=== PATIENT | female | born 1950 | race Caucasian/White ===

== ENCOUNTER 2020-05-12 13:57 | Inpatient (IN) | payer MEDICARE, SELFPAY ==
[~2020-05-12] VITALS: Ht 162.6 cm; Wt 72.0 kg
[2020-05-12 14:27] LABS: BASOPHILS ABSOLUTE AUTO 0.04 K/mm3 (0.00-0.23); BASOPHILS PERCENT AUTO 1 % (0-2); EOSINOPHILS ABSOLUTE AUTO 0.26 K/mm3 (0.00-0.68); EOSINOPHILS PERCENT AUTO 3 % (0-6); Hematocrit 43.7 % (33.0-51.0); Hemoglobin 14.2 g/dL (11.5-16.0); IMMATURE GRAN ABSOLUTE AUTO 0.03 K/mm3 (0.00-0.10); IMMATURE GRAN PERCENT AUTO 0 % (0-1); LYMPHOCYTES ABSOLUTE AUTO 2.78 K/mm3 (0.84-5.20); LYMPHOCYTES PERCENT AUTO 35 % (21-46); MONOCYTES ABSOLUTE AUTO 0.63 K/mm3 (0.16-1.47); MONOCYTES PERCENT AUTO 8 % (4-13); Mean Corpuscular HGB 28.4 pg (26.0-34.0); Mean Corpuscular HGB Conc 32.5 g/dL (31.5-36.5); Mean Corpuscular Volume 87 fL (80-100); Mean Platelet Volume 12.1 fL (9.1-12.4); NEUTROPHILS ABSOLUTE AUTO 4.13 K/mm3 (1.96-9.15); NEUTROPHILS PERCENT AUTO 53 % (41-73); Platelet Count 196 K/mm3 (150-400); RDW Standard Deviation 41.3 fL (35.1-46.3); White Blood Cell Count 7.87 K/mm3 (4.00-11.30)
[2020-05-12 14:40] LABS: International Normalized Ratio 0.9; Prothrombin Time Results 9.7 Sec (9.7-11.5)
[2020-05-12 14:51] LABS: Albumin, Blood 3.7 g/dL (3.4-5.0); Albumin/Globulin Ratio 1.1 (0.8-1.8); Bilirubin, Total 0.4 mg/dL (0.1-1.0); Bun/Creatinine Ratio 19.2 (12.0-20.0); Calcium, Blood 9.6 mg/dL (8.5-10.1); Creatinine, Blood 1.04 mg/dL (0.40-1.00); Globulin, Blood 3.5 g/dL (2.2-4.0); Potassium, Blood 4.1 mmol/L (3.5-5.5); Total Protein, Blood 7.2 g/dL (6.4-8.2)
--- NOTE | 2020-05-12 20:24 | NUR ---
JENNIFER BEING ADMITTED TO THE FLOOR FOR CVA. IS AT BEDSIDE. JENNIFER ARRIVED VIA GURNEY, TRANSFERRED SELF TO BED. KNOWS WHO SHE IS, HER BUT HAS APHASIA. THIS STARTED AT 1700 YESTERDAY. THOUGHT IT WOULD GO AWAY, SHE STARTED TO HAVE TROUBLE WALKING SO HE BROUGHT HER IN. SHE IS ABLE TO COMPERHEND SOME SIMPLE WORDS BUT TENDS TO LOOK AT HER FOR UNDERSTANDING. YOU HAVE TO GESTURE OR USE HANDS TO POINT TO WHAT YOU NEED HER TO DO. ABLE TO FOLLOW DIRECTIONS PART OF THE TIME. SHE TRIES TO TALK BUT WORDS DO NOT FORM CORRECTLY ALL THE TIME. SHE WAS ABLE TO SAY "CAN'T TALK", UNABLE TO SMILE, HAS FROWN INSTEAD. TONGUE IS CENTERED. PUPILS LEFT 4MM RIGHT 3MM REACTIVE. CASINO ATTENDANT ARE EQUAL AND STRONG. BLE ARE ALSO EQUAL AND STRONG. DOES NOT HAVE HEADACHE AT THIS TIME, OR VISION CHANGES. BP IS 230/80 WILL CALL MD TO SEE WHERE THEY WANT THE PRESSURE AT. PLANS TO STAY WITH PATIENT. CALL LIGHT IS GIVEN. BED ALARM IS ON.
--- NOTE | 2020-05-12 21:21 | NUR ---
CALLED AREN CHAVEZ REGARDING HYPERTENSION. STATES BP UP TO 220 IS OK ANYTHING ABOVE THAT TO GIVE HYDRALAZINE. ORDER PLACED.
--- NOTE | 2020-05-12 23:58 | NUR ---
PT REPORTS SEVERE HEADACHE BEHIND THE LEFT EYE TO TEMPAL AREA. CHECKED NEUROS NO CHANGES. WAS ABLE TO FORM A SENTENCE BUT STILL HAVING TROUBLE COMPERHENDING. IS BACK FOR THE NIGHT.
[2020-05-13 05:26] LABS: BASOPHILS ABSOLUTE AUTO 0.03 K/mm3 (0.00-0.23); BASOPHILS PERCENT AUTO 0 % (0-2); EOSINOPHILS ABSOLUTE AUTO 0.11 K/mm3 (0.00-0.68); EOSINOPHILS PERCENT AUTO 1 % (0-6); Hematocrit 44.3 % (33.0-51.0); Hemoglobin 14.5 g/dL (11.5-16.0); IMMATURE GRAN ABSOLUTE AUTO 0.02 K/mm3 (0.00-0.10); IMMATURE GRAN PERCENT AUTO 0 % (0-1); LYMPHOCYTES ABSOLUTE AUTO 2.21 K/mm3 (0.84-5.20); LYMPHOCYTES PERCENT AUTO 24 % (21-46); MONOCYTES ABSOLUTE AUTO 0.59 K/mm3 (0.16-1.47); MONOCYTES PERCENT AUTO 6 % (4-13); Mean Corpuscular HGB Conc 32.7 g/dL (31.5-36.5); Mean Corpuscular Volume 86 fL (80-100); Mean Platelet Volume 12.1 fL (9.1-12.4); NEUTROPHILS ABSOLUTE AUTO 6.43 K/mm3 (1.96-9.15); NEUTROPHILS PERCENT AUTO 69 % (41-73); Platelet Count 193 K/mm3 (150-400); RDW Coefficient Variation 13.1 % (11.7-14.2); RDW Standard Deviation 40.9 fL (35.1-46.3); Red Blood Cell Count 5.17 M/mm3 (3.80-5.20); White Blood Cell Count 9.39 K/mm3 (4.00-11.30)
[2020-05-13 06:08] LABS: Anion Gap 9 mmol/L (6-16); Blood Urea Nitrogen 19 mg/dL (8-24); Bun/Creatinine Ratio 17.4 (12.0-20.0); CHOL/HDL RATIO 6.7; CO2, Blood 22 mmol/L (21-32); Calcium, Blood 9.2 mg/dL (8.5-10.1); Chloride, Blood 108 mmol/L (98-108); Cholesterol 288 mg/dL (50-200); Creatinine, Blood 1.09 mg/dL (0.40-1.00); Glomerular Filtration Rate 52 (60-); Glucose, Blood 194 mg/dL (70-99); HDL Cholesterol 43 mg/dL (>39); LDL/HDL RATIO 4.5; Low Density Lipoprotein Chol 195 mg/dL (0-110); Potassium, Blood 3.8 mmol/L (3.5-5.5); Sodium, Blood 139 mmol/L (136-145); Triglycerides 248 mg/dL (30-160); Very Low Density Lipoprot Chol 49 mg/dL (6-32)
--- NOTE | 2020-05-13 07:38 | NUR ---
SHIFT SUMMARY: ADMIT FOR CVA, AT BEDSIDE. SYMPTOMS OF APHAGIA CONTINUED THROUGOUT THE NIGHT, DIFFICULTY COMPERHENDING WHAT IS SAID. TENDS TO LOOK AT HER FOR HELP. ABLE TO GET UP AND WALK WITH NO PROBLEMS. SMILE IS MORE OF A FROWN. NPO EXCEPT ICE CHIPS AND MEDS. BE 230/80, GAVE 10MG OF HYDRALAZINE. BP DOWN TO 214 THEN TO 175. DEVELOPED HEADACHE. GAVE 25MCQ OF FENTANYL. NEURO REMAINED THE SAME WITH NO CHANGES. TRIGLYCERIDES, CHOLESTROL AND LDL ALL WERE ELEVATED THIS AM. DISCUSSED WITH THE NEED TO CHANGE DIET. PATIENT TO HAVE MRI AND ECHO THIS AM. 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 TELE SINUS. REPORT GIVEN TO DAY SHIFT. CALL LIGHT IN REACH.
--- NOTE | 2020-05-13 11:31 | NUR ---
Echocardiogram performed.
--- NOTE | 2020-05-13 18:23 | NUR ---
SHIFT SUMMARY. ALERT, ALTHOUGH LETHARGIC, SLEEPING MOST OF THE SHIFT, AWAKENS EASILY WITH VERBAL STIMULI. PT CONTINUES WITH GLOBAL APHASIA, ONLY ABLE TO SPEAK A FEW WORDS AT A TIME AND POOR COMPREHENSION OF CONVERSATION. NO PHYSICAL DEFICITS OBSERVED. WILLIAM. NEURO ASSESSMENT UNCHANGED FROM AM ASSESSMENT THROUGH THE REST OF SHIFT. PT DID NOT TOLERATE MRI HEAD, DR. KENNEY AWARE. PT CONTUES WITH HYPERTENSION, MEDICATED PER EMAR TO ALLOW PERMISSIVE HYPERTENSION AT A REASONABLE LEVEL. PT WITH H/A DURING SHIFT, INTENSITY DECREASED BY END OF SHIFT, PRN APAP AND COOL WASH CLOTH TO FOREHEAD DURING SHIFT. AT BEDSIDE ENTIRE SHIFT UNTIL JUST NOW, HE WILL RETURN AND STAY WITH PT FOR THE REMAINDER OF NIGHT.
--- NOTE | 2020-05-13 19:49 | NUR ---
SPOKE TO PHARMACY CONTACTED GENE IN PHARMACY ABOUT GIVING THE PT HER 2100 DOSE OF AMLODIPINE SINCE SHE RECIEVED HER FIRST DOSE AT 1710. GENE SUGGESTED TO GIVE THE 2100 DOSE BUT TO WAIT UNTIL CLOSER TO 2200 TO GIVE IT. PT'S BP IS 178/82 AND CHARGE NURSE IS AWARE OF THE SITUATION.
--- NOTE | 2020-05-14 05:46 | NUR ---
TAX COMPLIANCE OFFICER SUMMARY PT SLEPT FOR MOST OF THE SHIFT W AT HER SIDE. PT AWOKE ONCE W C/O HEADACHE AND WAS GIVEN TYLENOL. PT APPEARS CONFUSED ABOUT HER CONDITION AND DOESNT UNDERSTAND WHY SHE CANNOT TALK. PT AND WERE EDUCATED ON EFFECTS OF A TIA/CVA ALTHOUGH IT IS NOT CLEAR IF THE PT UNDERSTANDS. PT HAS HAD EMOTIONAL LABILITY AND WILL BEGIN TO CRY WHILE LYING IN BED. EXPRESSED FEAR AND CONCERN ABOUT HIS WIFES CONDITION GOING FORWARD WILL LOOK LIKE. PT'S BLOOD PRESSURE IS SYSTOLIC IN THE 160'S, NO HYDRALAZINE WAS GIVEN THIS SHIFT. PT AND ARE BOTH SLEEPING COMFORTABLY W CALL LIGHT WITHIN REACH.
--- NOTE | 2020-05-14 13:11 | NUR ---
MRI COMPLETED, TANK SETTER HELPER REPORTED ALL SEQUENCES WERE COMPLETED ALTHOUGH PT DID HAVE DIFFICULTY HOLDING HEAD STILL AT TIMES.
--- NOTE | 2020-05-14 18:00 | NUR ---
SHIFT SUMMARY. LETHARGIC, AWAKENS EASILY WITH VERBAL STIMULI. ORIENTATED TO SELF AND FAMILY ONLY. CONTINUES WITH GLOBAL APHASIA. COMPREHENSION AND SPEECH SLIGHTLY IMPROVED TODAY COMPARED TO YESTERDAY. PT DENIES PAIN. NO S/SX OF DISCOMFORT OR DISTRESS. DR. KENNEY IN THIS AFTERNOON TO DISCUSS MRI RESULTS WITH PT AND . NO OTHER CHANGES OR CONCERNS.
--- NOTE | 2020-05-15 01:59 | NUR ---
05/14/201999 PT AMBULATED WITH THIS NURSE AND SPOUSE 200 FEET IN HALLWAY AND BACK WITH GAIT SLOW AND STEADY; PT UNABLE TO VERBALIZE ANY UNDERSTANDABLE WORDS AND HAS TROUBLE MAKING GESTURES; PT NOTED TO HAVE STRONG BILATERAL HAND MAINTENANCE HELPER UTILITY ENGINEER AND FOOT PUSH AND PULLS; NO ISSUES WITH EATING OR SWALLOWING FLUIDS; SPOUSE AT SIDE AND SUPPORTIVE.
--- NOTE | 2020-05-15 04:05 | NUR ---
SHIFT SUMMARY: 70 Y/O OBESE FEMALE RESTED COMFORTABLY ALL SHIFT; PT DEMONSTRATED ABILITY THIS SHIFT TO WALK DOWN HALLWAY WITH GAIT SLOW AND STEADY; PTS BILATERAL HAND LINOLEUM FLOOR LAYER/FOOT PUSH AND PULLS STRONG AND EQUAL; PT HAS FINE MOTOR MOVEMENT; PT HAS APHASIA AND UNABLE TO VERBALIZE HER NEEDS AND RELIES ON SPOUSE FOR ASSISTANCE; DENIES PAIN OR NAUSEA VIA NON VERBAL CUES; PT WILLL BENEFIT FROM HOME HEALTH CARE REFERRAL FOR SPEECH THERAPY IN HOME WITH NURSING; BD LOW POSITION WITH CALL LIGHT AT SIDE PTS SPOUSE LUIS AT SIDE ALL NIGHT.
[2020-05-15] MEDS ORDERED: AMLO5 PO (12:33)
[2020-05-15] MEDS ORDERED: Aspir 8181 MG PO (12:34)
[2020-05-15] MEDS ORDERED: ATOR80 PO (12:35)
[2020-05-15] MEDS ORDERED: Prinivil10 MG PO (12:36)
[2020-05-15] MEDS ORDERED: CLOP75 PO (12:37)
[2020-05-15] MEDS ORDERED: METF500 PO (12:38)
--- NOTE | 2020-05-15 15:57 | NUR ---
DISCHARGE NOTE PT IS A&O TO SELF, FAMILY. PT IS ABLE TO ANSWER SOME QUESTIONS BUT WILL PAUSE DURING SOME AND IS UNABLE TO FIND THE CORRECT WORDS. PT ACCEPTING OF CARE AND LOOKS TO FOR SUPPORT AND TO ASK AND ANSWER QUESTIONS FOR HER. WENT OVER DC PACKET WITH PT AND SPOUCE. DID DIABETIC TEACHING AND HOW TO CHECK BLOOD SUGARS AT HOME. RECEPTIVE TO TEACHING AND ASKED QUESTIONS. GAVE PT INFORMATION ON FINDING A PCP AND HOW TO SIGN UP FOR OHP. REMOVED IV'S BEFORE DISCHARGE. PT TAKEN TO EXIT VIA WHEELCHAIR BY GURINDER BRAXTON.
== END 2020-05-15 15:57 | disposition home or self-care (01) | DRG 66 ==
LOC: ER 13:57 → MEDS 13:58 → ENPENDDIS 05-15 10:55 → MEDS 05-15 15:57
PROVIDERS: Nurse Practitioner Acute Care; Physician Assistant; ADMIT Family Medicine
DX: I63.212 Cerebral infarction due to unspecified occlusion or stenosis of left vertebral artery (principal); R47.89 Other speech disturbances; E66.9 Obesity, unspecified; E78.5 Hyperlipidemia, unspecified; I12.9 Hypertensive chronic kidney disease with stage 1 through stage 4 chronic kidney disease, or unspecified chronic kidney disease; E11.22 Type 2 diabetes mellitus with diabetic chronic kidney disease; N18.30 Chronic kidney disease, stage 3 unspecified; R47.01 Aphasia; R47.02 Dysphasia; Z68.36 Body mass index [BMI] 36.0-36.9, adult; Z87.891 Personal history of nicotine dependence; Z20.822 Contact with and (suspected) exposure to COVID-19
CPT/HCPCS: 36415; 70450; 70496; 70498; 70551; 80048; 80053; 80061; 82947; 83036; 85025; 85610; 92523; 92610; 93005; 93010; 93306; 96374; 96375; 96376; 97162; 99285-25; A9270; G0378; J0360; J2060; J3010; Q9967

== ENCOUNTER 2025-03-16 04:47 | Inpatient (IN) | payer MEDICARE | END 2025-03-20 13:30 | disposition home health service (06) | DRG 280 | LOC: ER 04:47 → PCU 07:24 → ICUE 03-18 11:52 → PCU 03-19 17:38 | PROVIDERS: ADMIT Family Medicine | PROC: B24BZZZ Ultrasonography of Heart with Aorta (ICD-10-PCS; principal; 2025-03-16) | DX: I21.4 Non-ST elevation (NSTEMI) myocardial infarction (principal); I50.21 Acute systolic (congestive) heart failure; I13.0 Hypertensive heart and chronic kidney disease with heart failure and stage 1 through stage 4 chronic kidney disease, or unspecified chronic kidney disease; J90 Pleural effusion, not elsewhere classified; N17.9 Acute kidney failure, unspecified; I16.1 Hypertensive emergency; E87.20 Acidosis, unspecified; E78.5 Hyperlipidemia, unspecified; Z86.73 Personal history of transient ischemic attack (TIA), and cerebral infarction without residual deficits; Z79.82 Long term (current) use of aspirin; N18.30 Chronic kidney disease, stage 3 unspecified; E11.22 Type 2 diabetes mellitus with diabetic chronic kidney disease; Z79.84 Long term (current) use of oral hypoglycemic drugs; I16.0 Hypertensive urgency; Z87.891 Personal history of nicotine dependence; I70.1 Atherosclerosis of renal artery; R04.0 Epistaxis ==

== ENCOUNTER 2025-03-22 19:07 | Inpatient (IN) | payer MEDICARE ==
[~2025-03-22] VITALS: Ht 167.6 cm; Wt 59.4 kg
[~2025-03-22 19:07] MED LIST: AMLO5 PO; AMLODIPINE BESY10 MG PO; ASPI81CH PO; ATOR40TA PO; ATOR80 PO; Aspir 8181 MG PO; CLOP75 PO; Ketamine HCl 100 MG / ML 5ML Vial IV ONE; LABE100 PO; METF500 PO; NITR.4SL SL; ONDA4ODT MM; Prinivil10 MG PO; SuccINYLCHOLINE Chloride 100 MG/5 ML 5MLSYR IV ONE
[2025-03-22] MEDS ORDERED: DiphenhydrAMINE HCl 50 MG/ML 1ML Vial IV ONE (19:50)
[2025-03-22 20:01] LABS: Source, Urine Straight Cath
[2025-03-22 20:24] LABS: Alanine Aminotransfer (ALT/SGP 44 U/L (12-78); Albumin, Blood 3.5 g/dL (3.4-5.0); Albumin/Globulin Ratio 1.1 (0.8-1.8); Anion Gap 11 mmol/L (3-11); Aspartate Aminotrans (AST/SGOT 44 U/L (12-37); Bilirubin, Total 0.7 mg/dL (0.1-1.0); Blood Urea Nitrogen 48 mg/dL (8-24); CO2, Blood 21 mmol/L (21-32); Calcium, Blood 8.7 mg/dL (8.5-10.1); Chloride, Blood 113 mmol/L (98-108); Creatinine, Blood 2.25 mg/dL (0.40-1.00); Ethanol (Alcohol), Blood, Med <3 mg/dL; Globulin, Blood 3.1 g/dL (2.2-4.0); Glucose, Blood 128 mg/dL (70-99); Potassium, Blood 4.7 mmol/L (3.5-5.5); Sodium, Blood 140 mmol/L (136-145); Total Protein, Blood 6.6 g/dL (6.4-8.2)
[2025-03-22 20:25] LABS: Bilirubin, Urine Neg (Neg); Glucose Qualitative, Urine Neg (Neg); Ketones, Urine Neg (Neg); Leukocyte Esterase, Urine Neg (Neg); Protein, Urine 2+ (Neg); Specific Gravity, Urine 1.020 (1.003-1.022); Urobilinogen, Urine NORM (Normal)
[2025-03-22 20:37] LABS: Color, Urine Yellow (P-Yellow)
[2025-03-22 20:38] LABS: Red Blood Cells, Urine 0-2 /hpf (0-2); White Blood Cells, Urine 0-2 /hpf (0-5)
[2025-03-22 20:42] VITALS: BP 91/68
[2025-03-22 20:44] LABS: BAND PERCENT MAN 1 % (0-8); BASOPHILS PERCENT MAN 2 % (0-2); EOSINOPHILS PERCENT MAN 2 % (0-6); LYMPHOCYTES PERCENT MAN 19 % (21-46); MONOCYTES PERCENT MAN 7 % (4-13); PLASMA CELLS PERCENT MAN 1 % (0-0); SEG NEUTROPHILS PERCENT MAN 68 % (41-73)
[2025-03-22] MEDS ORDERED: LORazepam 2 MG/ML 1ML Injection IV ONE (20:45)
[2025-03-22 20:47] LABS: BASOPHILS ABSOLUTE AUTO 0.06 K/mm3 (0.00-0.23); BASOPHILS ABSOLUTE MAN 0.17 K/mm3 (0.00-0.23); BASOPHILS PERCENT AUTO 1 % (0-2); EOSINOPHILS ABSOLUTE AUTO 0.28 K/mm3 (0.00-0.68); EOSINOPHILS ABSOLUTE MAN 0.17 K/mm3 (0.00-0.68); EOSINOPHILS PERCENT AUTO 3 % (0-6); Hematocrit 36.1 % (33.0-51.0); Hemoglobin 11.5 g/dL (11.5-16.0); IMMATURE GRAN ABSOLUTE AUTO 0.04 K/mm3 (0.00-0.10); IMMATURE GRAN PERCENT AUTO 1 % (0-1); LYMPHOCYTES ABSOLUTE AUTO 1.72 K/mm3 (0.84-5.20); LYMPHOCYTES ABSOLUTE MAN 1.64 K/mm3 (0.84-5.20); LYMPHOCYTES PERCENT AUTO 20 % (21-46); MONOCYTES ABSOLUTE AUTO 1.04 K/mm3 (0.16-1.47); MONOCYTES ABSOLUTE MAN 0.60 K/mm3 (0.16-1.47); MONOCYTES PERCENT AUTO 12 % (4-13); Mean Corpuscular HGB Conc 31.9 g/dL (31.5-36.5); Mean Corpuscular Volume 85 fL (80-100); NEUTROPHILS ABSOLUTE AUTO 5.52 K/mm3 (1.96-9.15); NEUTROPHILS ABSOLUTE MAN 5.97 K/mm3 (1.96-9.15); NEUTROPHILS PERCENT AUTO 64 % (41-73); NRBC ABSOLUTE 0.03 K/mm3 (0.00-0.02); NRBC Auto 0.3 /100 WBC (0.0-0.2); PLASMA CELL ABSOLUTE MAN 0.08 K/mm3 (0.00-0.00); Platelet Count 169 K/mm3 (150-400); RDW Coefficient Variation 16.1 % (11.7-14.2); RDW Standard Deviation 49.2 fL (35.1-46.3)
[2025-03-22] MEDS ORDERED: NS 1,000 ML IV SCH (21:00)
[2025-03-22] MEDS ORDERED: SuccINYLCHOLINE Chloride 20 MG/ML 10ML Injection IV ONE (21:05)
[2025-03-22] MEDS ORDERED: Ketamine HCl 100 MG / ML 5ML Vial IV ONE (21:05)
[2025-03-22 21:34] LABS: pH Blood Venous 7.36 (7.34-7.37)
[2025-03-22 21:48] LABS: U Amphetamine Screen Not Detected; U Barbiturate Screen Not Detected; U Benzodiazapine Screen Not Detected; U Buprenorphine Screen Not Detected; U Cannabinoids Screen Not Detected; U Cocaine Screen Not Detected; U Methadone Screen Not Detected; U Methamphetamine Screen Not Detected; U Opiates Screen Not Detected; U Oxycodone Screen Not Detected; U Phencyclidine Screen Not Detected
[2025-03-22 22:29] LABS: Influenza A, PCR NEGATIVE (NEGATIVE); Influenza B, PCR NEGATIVE (NEGATIVE); Resp Syncytial Virus, PCR NEGATIVE (NEGATIVE); SARS-Cov-2 (COVID-19) PCR, MMC NEGATIVE (NEGATIVE)
[2025-03-22 22:42] VITALS: BP 91/68
[2025-03-22] MEDS ORDERED: FentaNYL Citrate 50 MCG/ML 2 ML Injection IV PRN (22:45)
[2025-03-22] MEDS ORDERED: FLU VACC TS2025(65UP)/MF59C/PF 45 MCG/0.5 ML SYRINGE IM SCH (22:45)
[2025-03-22] MEDS ORDERED: Cetylpyridinium Chloride 1 EA MISC MT SCH (22:45)
[2025-03-22 23:15] VITALS: BP 91/68
[2025-03-22 23:30] VITALS: BP 148/55
[2025-03-22 23:45] VITALS: BP 126/57
[2025-03-23] VITALS (57 sets, daily range): BP systolic 87–152; BP diastolic 49–124
[2025-03-23] MEDS ORDERED: Hydrogen Peroxide 1.5 % Solution MT SCH
[2025-03-23] MEDS ORDERED: NS 100 ML IV ONE (01:52)
[2025-03-23] MEDS ORDERED: Vancomycin (Pharmacy Consult) IV PRN (04:00)
[2025-03-23 04:40] LABS: BASOPHILS ABSOLUTE AUTO 0.03 K/mm3 (0.00-0.23); BASOPHILS PERCENT AUTO 0 % (0-2); EOSINOPHILS ABSOLUTE AUTO 0.04 K/mm3 (0.00-0.68); EOSINOPHILS PERCENT AUTO 1 % (0-6); Hematocrit 31.4 % (33.0-51.0); Hemoglobin 10.1 g/dL (11.5-16.0); IMMATURE GRAN ABSOLUTE AUTO 0.03 K/mm3 (0.00-0.10); IMMATURE GRAN PERCENT AUTO 0 % (0-1); LYMPHOCYTES ABSOLUTE AUTO 1.22 K/mm3 (0.84-5.20); LYMPHOCYTES PERCENT AUTO 14 % (21-46); MONOCYTES ABSOLUTE AUTO 0.85 K/mm3 (0.16-1.47); MONOCYTES PERCENT AUTO 10 % (4-13); Mean Corpuscular HGB Conc 32.2 g/dL (31.5-36.5); Mean Corpuscular Volume 84 fL (80-100); NEUTROPHILS ABSOLUTE AUTO 6.35 K/mm3 (1.96-9.15); NEUTROPHILS PERCENT AUTO 74 % (41-73); NRBC ABSOLUTE 0.00 K/mm3 (0.00-0.02); NRBC Auto 0.0 /100 WBC (0.0-0.2); Platelet Count 166 K/mm3 (150-400); RDW Coefficient Variation 16.0 % (11.7-14.2); RDW Standard Deviation 49.5 fL (35.1-46.3)
[2025-03-23 04:45] LABS: pH Blood Venous 7.36 (7.34-7.37)
[2025-03-23 05:13] LABS: Alanine Aminotransfer (ALT/SGP 41.0 U/L (12-78); Albumin, Blood 3.3 g/dL (3.4-5.0); Albumin/Globulin Ratio 1.0 (0.8-1.8); Anion Gap 11.0 mmol/L (3-11); Aspartate Aminotrans (AST/SGOT 48.0 U/L (12-37); Bilirubin, Total 0.7 mg/dL (0.1-1.0); Blood Urea Nitrogen 50.0 mg/dL (8-24); CO2, Blood 23.0 mmol/L (21-32); Calcium, Blood 8.7 mg/dL (8.5-10.1); Chloride, Blood 113.0 mmol/L (98-108); Creatinine, Blood 2.45 mg/dL (0.40-1.00); Globulin, Blood 3.2 g/dL (2.2-4.0); Glucose, Blood 132.0 mg/dL (70-99); Magnesium, Blood 2.5 mg/dL (1.6-2.4); Potassium, Blood 4.7 mmol/L (3.5-5.5); Sodium, Blood 142.0 mmol/L (136-145); Total Protein, Blood 6.5 g/dL (6.4-8.2)
--- NOTE | 2025-03-23 06:29 | NUR ---
SHIFT SUMMARY PT REMAINS INTUBATED AND SEDATED, RASS -2 WHICH CHANGES TO +1 WITH STIMULATION. VENT SETTINGS A/C VC 14/350/5/55% FI02, SATS REMAIN >90%. PROPOFOL INFUSING AT 30 MCG AND LEVOPHED ON SB. RHYTHM IS SINUS WITH RATE OF 60S-80S ON MONITOR WITH OCCASIONAL PVC'S, BP HAS BEEN LABILE, DIPPING TO MAP OF 55-65 AND QUICKLY RECOVERING TO >65 WITH REPOSITIONING OF ARM. PT RFA PIV HAD EXTRAVASATION OF LEVOPHED, ADMINISTERED REGITINE PER JUL, IV WAS DC'D AND NEW POWERGLIDE PLACED IN RUE WHICH REMAINS PATENT. PIV IN LEFT WRIST WAS NO LONGER PATENT, DC'D AND PLACE NEW US GUIDED PIV IN LAC WAS PLACED. LATER IN SHIFT, THE LAC ALSO EXTRAVASATED WHILE INFUSING VANCOMYCIN. PROVIDER CONTACTED AGAIN, AND ADMINISTERED HYALURONIDASE PER JUL, PIV DC'D AND NEW PIV PLACED WITH US IN RAC WHICH REMAINS PATENT. LONGORIA IN PLACE AND DRAINING TO GRAVITY, CALL LIGHT IS WITHIN REACH.
[2025-03-23] MEDS ORDERED: Cefepime HCl 1,000 MG in NS 100 ML IV SCH (09:00)
--- NOTE | 2025-03-23 11:00 | NUR ---
"Spiritual Care Visit | Nurse recommendation Pt is intubated and not responsive, but is known to this exercise physiology professor from a previous visit. Spouse is at bedside and welcomes my visit. Facilitated an update and listened with empathy and a calming presence. Spouse verbalized a request for jaquelin exercise physiology professor to reach out to his senior wind energy consultant and request his presence. Prayed with Spouse. Spouse verbalized gratitude for the spiritual care visits. Contacted his senior wind energy consultant via text"
[2025-03-23] MEDS ORDERED: NS 1,000 ML IV SCH (15:45)
[2025-03-23] MEDS ORDERED: NS 1,000 ML IV ONE (15:49)
[2025-03-23] MEDS ORDERED: Ipratropium/Albuterol SulF 2.5-0.5MG/3 ML Amp INH PRN (17:10)
[2025-03-23] MEDS ORDERED: Furosemide 10 MG / ML 2ML Vial IV ONE (17:30)
--- NOTE | 2025-03-23 18:42 | NUR ---
Patient remains on ICU status. Was able to liberate patient from mechanical ventilation. Around 17:00 patient became agitated and restless, Dr Garcia came to bedside, Precedex restarted on patient, lasix ordered. Urine output the hour after lasix IVP was low, navarro placement checked and bladder scan completed for reading of 9ml (see bladder flowsheet). was at bedside for majority of the day. Daughter updated via phone by .
[2025-03-24] VITALS (41 sets, daily range): BP systolic 102–177; BP diastolic 41–123
[2025-03-24 05:04] LABS: Anion Gap 12 mmol/L (3-11); Blood Urea Nitrogen 49 mg/dL (8-24); CO2, Blood 22 mmol/L (21-32); Calcium, Blood 8.9 mg/dL (8.5-10.1); Chloride, Blood 116 mmol/L (98-108); Creatinine, Blood 2.59 mg/dL (0.40-1.00); Glucose, Blood 132 mg/dL (70-99); Potassium, Blood 4.2 mmol/L (3.5-5.5); Sodium, Blood 146 mmol/L (136-145); Vancomycin, Random 18.9 ug/mL
--- NOTE | 2025-03-24 06:18 | NUR ---
SHIFT SUMMARY NO ACUTE CHANGES DURING NOC. ROUSES EASILY TO VERBAL STIMULI. OCCASIONALLY FOLLOWS SOME SIMPLE COMMANDS. MOVES ALL EXTREMITIES AND REPOSITIONS SELF INTERMITTENTLY. SPEECH IS MINIMAL AND MUMBLED. VSS. HR HIGH 50s TO 60s. AFEBRILE. O2 NOW AT 3L NC. RESPIRATIONS EVEN AND UNLABORED. PRECEDEX TITRATED FROM 0.5 DOWN TO 0.3MCG/KG/HR. LONGORIA PATENT AND DRAINING TO GRAVITY. WILL REPORT TO ONCOMING RN WHEN AVAILABLE.
--- NOTE | 2025-03-24 06:36 | NUR ---
AGITATION PT WITH INCREASED AGITATION AT THIS TIME. ATTEMPTING TO CLIMB OUT OF BED AND THRASHING AROUND IN BED. NOT FOLLOWING COMMANDS WHILE AGITATED. SOB NOTED WITH EXERTION. PRECEDEX INCREASED BACK TO 0.4MCG/KG/HR AND MEDICATED WITH FENTANYL 25MCG IV FOR COMFORT. WITHIN SEVERAL MINUTES, PT CALMED DOWN AND WAS ABLE TO FOLLOW SIMPLE COMMANDS AND WAS ABLE TO SAY THAT SHE WAS IN THE HOSPITAL. BED ALARM IS ON.
--- NOTE | 2025-03-24 09:57 | NUR ---
PALLIATIVE CARE CONSULT: CONSULT RECEIVED FOR MEDICALLY FRAGILE, ADVANCED CARE PLANNING, CULTURAL PERSPECTIVE, AND READMIT. MEDICAL RECORD REVIEW COMPLETED. NO POLST OR AD FOUND ON FILE OR THROUGH [facility]. WILL DISCUSS IN CM ROUNDS TODAY.
[2025-03-24] MEDS ORDERED: Haloperidol Lactate Inj. 5 MG/ML Injection IM PRN (11:30)
--- NOTE | 2025-03-24 18:36 | NUR ---
Patient remains in ICU care having an alteration in her mental status. Weaned off the Precedex infusion this morning due to patient somnolence. After infusion was off patient became agitated around 11:00 trying to get out of bed and pulling at lines. Precedex infusion was restarted and patient rested once more. Spoke with Dr Marrero concerning this and Dr Marrero put in PRN Zyprexa and PRN Haldol orders with the instructions that Zyprexa is to be used as the first line pharmaceutical intervention. Precedex infusion stopped again before noon and patient did have two more episodes of uncontrollable agitation during the shift, however, the Zyprexa was given in both instances and was effective in subsiding the agitation without making the patient as somnolent as the Precedex. See MAR and critical care flowsheet for PRN interventions and titration of Precedex infusion. This morning I also spoke with Dr Garcia concerning low urine output. Dr Garcia felt patient is dehydrated and ordered one liter of 1/2 normal saline. See MAR
[2025-03-24] MEDS ORDERED: Heparin Sodium,Porcine 5,000 UNIT/0.5 ML SDV SC SCH (21:00)
--- NOTE | 2025-03-24 21:00 | NUR ---
ASSUMPTION OF CARE/ASSESSMENT: ASSUMED CARE OF PT AT 1900; BEDSIDE SHIFT REPORT RECIEVED FROM MAVERICK BRAXTON. PT ORIENTED TO AND [place] BUT WHEN ASKED THE DATE PT STATES 1988 AND IS NOT ABLE TO ANSWER OTHER QUESTIONS. PT FOLLOWING COMMANDS INTERMITTENLY. PT ON NC @ 4LPM, CLEAR WITH DIM BASES, SPO2 90<; INTERMITTENT WHEEZES IN UPPER AIRWAY OBSERVED WHEN PT IS AGGITATED/ANXIOUS, PRN BREATHING TX PER EMAR. PT SR ON MONITOR WIHT PVC'S, HR 90'S, SBP 170'S, PT STATES "NO" WHEN ASLED ABOUT CHEST PAIN/PRESSURE. PT NPO, FAILED BEDSIDE SWALLOW EVAL, AND ORAL CARE COMPLETED. LONGORIA PATENT AND DRAINING TO GRAVITY, OLIGURIA NOTED AND DR. MERCER AWARE. PG TO GEORGES THAT IS PATENT AND SALINE LOCKED, PIV TO RAC THAT IS PATENT AND SALINE LOCKED. BED LOWERED, CALL LIGHT IN REACH.
[2025-03-24] MEDS ORDERED: Labetalol HCL 5 MG/ML 4ML Injection (Single Dose) IV PRN (21:25)
[2025-03-25] VITALS (30 sets, daily range): BP systolic 99–209; BP diastolic 65–136
[2025-03-25 05:50] LABS: BASOPHILS ABSOLUTE AUTO 0.06 K/mm3 (0.00-0.23); BASOPHILS PERCENT AUTO 1 % (0-2); EOSINOPHILS ABSOLUTE AUTO 0.14 K/mm3 (0.00-0.68); EOSINOPHILS PERCENT AUTO 1 % (0-6); Hematocrit 34.0 % (33.0-51.0); Hemoglobin 10.9 g/dL (11.5-16.0); IMMATURE GRAN ABSOLUTE AUTO 0.04 K/mm3 (0.00-0.10); IMMATURE GRAN PERCENT AUTO 0 % (0-1); LYMPHOCYTES ABSOLUTE AUTO 1.79 K/mm3 (0.84-5.20); LYMPHOCYTES PERCENT AUTO 18 % (21-46); MONOCYTES ABSOLUTE AUTO 1.05 K/mm3 (0.16-1.47); MONOCYTES PERCENT AUTO 11 % (4-13); Mean Corpuscular HGB Conc 32.1 g/dL (31.5-36.5); Mean Corpuscular Volume 85 fL (80-100); NEUTROPHILS ABSOLUTE AUTO 6.94 K/mm3 (1.96-9.15); NEUTROPHILS PERCENT AUTO 69 % (41-73); NRBC ABSOLUTE 0.00 K/mm3 (0.00-0.02); NRBC Auto 0.0 /100 WBC (0.0-0.2); Platelet Count 179 K/mm3 (150-400); RDW Coefficient Variation 15.8 % (11.7-14.2); RDW Standard Deviation 49.1 fL (35.1-46.3)
[2025-03-25 06:08] LABS: Magnesium, Blood 2.6 mg/dL (1.6-2.4)
[2025-03-25 06:09] LABS: Alanine Aminotransfer (ALT/SGP 50.0 U/L (12-78); Albumin, Blood 3.3 g/dL (3.4-5.0); Albumin/Globulin Ratio 0.9 (0.8-1.8); Anion Gap 13.0 mmol/L (3-11); Aspartate Aminotrans (AST/SGOT 65.0 U/L (12-37); Bilirubin, Total 0.7 mg/dL (0.1-1.0); Blood Urea Nitrogen 54.0 mg/dL (8-24); CO2, Blood 19.0 mmol/L (21-32); Calcium, Blood 9.2 mg/dL (8.5-10.1); Chloride, Blood 117.0 mmol/L (98-108); Creatinine, Blood 2.36 mg/dL (0.40-1.00); Globulin, Blood 3.6 g/dL (2.2-4.0); Glucose, Blood 119.0 mg/dL (70-99); Phosphorus, Blood 4.1 mg/dL (2.5-4.9); Potassium, Blood 4.5 mmol/L (3.5-5.5); Sodium, Blood 144.0 mmol/L (136-145); Total Protein, Blood 6.9 g/dL (6.4-8.2)
--- NOTE | 2025-03-25 06:10 | NUR ---
SHIFT SUMMARY: NO ACUTE CHANGES OVERNIGHT. PT INCREASING HYPERTENSION AT START OF SHIFT; PROVIDER UPDATED AND ORDERS FOR PRN LABETOLOL FOR SBP < 170. PT GIVEN ONE DOES WITH GOOD EFFECT. PT CONTINUES ON NC @ 4LPM. NEURO STATUS REMAINS UNCHANGED. ZYPREXA GIVEN TWICE THIS SHIFT WITH GOOD EFFECT. MORNING LABS PENDING. BED LOWERED, CALL LIGHT IN REACH.
[2025-03-25] MEDS ORDERED: Sodium Bicarb 8.4% Inj 50 MEQ IV SCH (06:25)
[2025-03-25] MEDS ORDERED: Sodium Bicarb 8.4% 1 MEQ/ML 50 ML Vial IV ONE (06:45)
--- NOTE | 2025-03-25 11:15 | NUR ---
PT REPORTED ACUTE ONSET SOB AND CHEST PAIN. EKG WAS OBTAINED. PAIN/EPISODE LASTED APPOX 15 MINUTES. PT UNABLE TO DESCRIBE PAIN ONLY ANSWERED YES/NO QUESTIONS. PT TACHYPNEIC RESPIRATORY RATE INCREASED TO 30S. HR INCREASED FROM 80S TO 130 SUSTAINED FOR APPROX 3MIN AND MAINTAINED HR 90-110S FOR APPOX 20 MINS. . PT BECAME DIAPHORETIC, AUDIBLE WHEEZING WITH FAINT CRACKLES IN RLL. INCREASED WOB AND PT BECAME ANXOUS ATTEMPTING TO EXIT THE BED AND MOANING. PT SBP 150-160S. PT HAD ANOTHER SIMILAR EVENT LASTING 3 MIN. [address]S RESOLVED. DR VASQUEZ NOTIFIED. VERBAL ORDER PROVIDED FOR CXR AND LASIX 80MG.
[2025-03-25] MEDS ORDERED: Dose Adjust by Pharmacy XX STA (17:54)
[2025-03-25] MEDS ORDERED: Heparin Sodium,Porcine/0.5 NS 500 ML IV SCH (17:55)
[2025-03-25 18:15] LABS: Anti-Xa UFH, PHA Monitoring <0.10 IU/mL; Prothrombin Time Results 11.6 Sec (9.7-11.5)
[2025-03-25] MEDS ORDERED: Heparin Sodium 5000 Units/ML 1ML MDV IV ONE (18:55)
[2025-03-25] MEDS ORDERED: Saline Nasal Spray 45 ML PRN (22:55)
[2025-03-26] VITALS (26 sets, daily range): BP systolic 112–173; BP diastolic 52–140
[2025-03-26 02:19] LABS: BASOPHILS ABSOLUTE AUTO 0.09 K/mm3 (0.00-0.23); BASOPHILS PERCENT AUTO 1 % (0-2); EOSINOPHILS ABSOLUTE AUTO 0.18 K/mm3 (0.00-0.68); EOSINOPHILS PERCENT AUTO 2 % (0-6); Hematocrit 33.9 % (33.0-51.0); Hemoglobin 10.9 g/dL (11.5-16.0); IMMATURE GRAN ABSOLUTE AUTO 0.05 K/mm3 (0.00-0.10); IMMATURE GRAN PERCENT AUTO 1 % (0-1); LYMPHOCYTES ABSOLUTE AUTO 1.69 K/mm3 (0.84-5.20); LYMPHOCYTES PERCENT AUTO 16 % (21-46); MONOCYTES ABSOLUTE AUTO 1.12 K/mm3 (0.16-1.47); MONOCYTES PERCENT AUTO 10 % (4-13); Mean Corpuscular HGB Conc 32.2 g/dL (31.5-36.5); Mean Corpuscular Volume 84 fL (80-100); NEUTROPHILS ABSOLUTE AUTO 7.64 K/mm3 (1.96-9.15); NEUTROPHILS PERCENT AUTO 71 % (41-73); NRBC ABSOLUTE 0.00 K/mm3 (0.00-0.02); NRBC Auto 0.0 /100 WBC (0.0-0.2); Platelet Count 187 K/mm3 (150-400); RDW Coefficient Variation 15.8 % (11.7-14.2); RDW Standard Deviation 48.3 fL (35.1-46.3)
[2025-03-26 02:42] LABS: Anion Gap 15.0 mmol/L (3-11); Blood Urea Nitrogen 65.0 mg/dL (8-24); CO2, Blood 24.0 mmol/L (21-32); Calcium, Blood 9.4 mg/dL (8.5-10.1); Chloride, Blood 113.0 mmol/L (98-108); Creatinine, Blood 2.34 mg/dL (0.40-1.00); Glucose, Blood 154.0 mg/dL (70-99); Potassium, Blood 3.6 mmol/L (3.5-5.5); Sodium, Blood 148.0 mmol/L (136-145)
[2025-03-26] MEDS ORDERED: Dose Adjust by Pharmacy XX STA ×2 (02:46→10:30)
--- NOTE | 2025-03-26 06:37 | NUR ---
PATIENT ALERT, RESTLESS, AND ORIENT X1 (TO SELF ONLY). REPORTS NO PAIN. NO S/S OF DISTRESS/DISCOMFORT. TURN Q2 SCHEDULE. BP WITHIN DESIRED RANGE. PATIENT TROPONIN INCREASED TO 6264 THIS SHIFT. MD MADE AWARE AND NO NEW ORDERS RECIEVED. PER MD NO FOLLOW-UP NEEDED FOLLOWING THIS RESULT AT THIS TIME. CONTINUES ON HEPARIN GTT AT 12 U/KG/HR. LAB ANTI-XA SCHEDULED FOR MONITORING. OXYGEN TITRATED DOWN TO ROOM AIR WITH O2 SAT 92-94%. PATIENT REMOVING O2 PROBE FREQUENTLY. REEDUCATED ON NEED FOR O2 PROBE FOR OXYGEN MONTIORING. GENERALIZED WEAKNESS NOTED. TOLERATING PUREED DIET. PATIENT ATE FULL PUDDING CUP WITH NURSE ASSIST. MOUTH CARE PROVIDED Q2. PATIENT SCRATCHING NOSE FREQUENTLY AND ATTMPTING TO BLOW NOSE. SALINE NOSE SPRAY ORDERED AND ADMINISTED WITH DESIRED EFFECT. PATIENT NAILS ALSO FILED/SMOOTHED BY NURSE RELATED TO PATIENT SCRATCHING INSIDE OF NOSE AGRESSIVLY CAUSING A SMALL AMOUNT OF BLEEDING. BLEEDING STOPPED QUICKLY WITHOUT NEED FOR PRESSURE OR INTERVENTION. PATIENT NOSE CLEANED AND BACTROBAN PLACED ON AND AROUND NOSE. PATIENT FREQUENTLY REORIENTED THROUGHOUT SHIFT. SAFETY AND COMFORT MAINTAINED.
--- NOTE | 2025-03-26 10:11 | NUR ---
PATIENT ALERT TO SELF. ABLE TO TELL THIS RN NAME AND . SAYS "I DON'T KNOW" TO MOST QUESTIONS AND SHRUGS SHOULDERS. OPENS EYES AND FOLLOWS SIMPLE COMMANDS. MOVING ALL EXTREMITIES AND QUITE WIGGLY IN BED. DENIES PAIN THIS MORNING. ON ROOM AIR SATING 90-96%. LUNG SOUNDS CLEAR AND DIM. OCCASIONAL NONPRODUCTIVE COUGH. EVEN AND UNLABORED RESPIRATIONS. TELE SHOWING SINUS RHYTHM WITH HR 60-80'S. SBP 160'S THIS MORNING. DENIES CHEST PAIN/PRESSURE. HEPARIN GTT INFUSING PER EMAR. SCD'S IN PLACE. BOWEL TONES PRESENT. DENIES ABDOMINAL PAIN/NAUSEA. TOLERATING PUREE DIET WITH FEEDING ASSISTANCE. PILLS WHOLE WITH YOGURT THIS AM. LONGORIA CATH IN PLACE DRAINING YELLOW URINE TO GRAVITY. CATH CARE COMPLETED WITH MORNING CARES. SKIN PALE WITH SCATTERED BRUISING. PATIENT PICKING AT NOSE AND CAUSING NOSE TO BLEED. SALINE NASAL SPRAY AND OINTMENT TO NOSE TO HELP WITH DRYNESS. DR. HUANG AND DR. MEZA TO BEDSIDE THIS MORNING, THIS RN PRESENT. NO NEW ORDERS FOR THIS RN TO PLACE. CALL LIGHT IN REACH. PATIENT RESTING IN BED AND DENIES NEEDS.
--- NOTE | 2025-03-26 13:08 | NUR ---
PATIENT CHANCE TO 43. NONSYMPTOMATIC AND SLEEPING. BLOOD PRESSURE STABLE. DR. HUANG CALLED AND EKG COMPLETED. DR. HUANG TO UNIT TO VISUALIZE EKG. NO NEW ORDERS AT THIS TIME. LUIS AT BEDSIDE AND UPDATED ON PLAN OF CARE.
--- NOTE | 2025-03-26 17:29 | NUR ---
MRI RESULTS BACK. DR. HUANG UPDATED ON RESULTED MRI, PATIENT OUTPUT OF 500ML IN LONGORIA FOR THIS SHIFT AND VITALS. ORDERS FOR 500ML NORMAL SALINE IV TOTAL AT A RATE OF 75ML/HR.
[2025-03-26] MEDS ORDERED: NS 500 ML IV ONE (17:30)
--- NOTE | 2025-03-26 17:54 | NUR ---
ORDERS FOR HEPARIN, CONTINUE PUREE DIET AT THIS TIME AND NO NEED FOR NIH PER DR. HUANG. PATIENT REMAINS ALERT TO SELF. FOLLOWING SIMPLE COMMANDS. ON ROOM AIR - 2L NASAL CANNULA. BRADYCARDIA/NORMAL SINUS RHYTHM WITH HR 40-70'S. TOLERATING PUREE DIET AT THIS TIME WITH NO NOTED SWALLOWING ISSUES. AT BEDSIDE. BED BATH COMPLETED THIS SHIFT. PATIENT CONTINUES TO HAVE LONGORIA CATH DRAINING TO GRAVITY. ONE BOWEL MOVEMENT. CALL LIGHT IN REACH. PATIENT RESTING IN BED AT THIS TIME.
[2025-03-27] VITALS (12 sets, daily range): BP systolic 112–178; BP diastolic 55–122
[2025-03-27] MEDS ORDERED: Dose Adjust by Pharmacy XX STA (01:43)
[2025-03-27 04:55] LABS: Hematocrit 33.3 % (33.0-51.0); Hemoglobin 10.4 g/dL (11.5-16.0); Mean Corpuscular HGB Conc 31.2 g/dL (31.5-36.5); Mean Corpuscular Volume 86 fL (80-100); NRBC ABSOLUTE 0.00 K/mm3 (0.00-0.02); NRBC Auto 0.0 /100 WBC (0.0-0.2); Platelet Count 182 K/mm3 (150-400); RDW Coefficient Variation 15.8 % (11.7-14.2); RDW Standard Deviation 49.2 fL (35.1-46.3)
[2025-03-27 05:09] LABS: Anion Gap 9.0 mmol/L (3-11); Blood Urea Nitrogen 57.0 mg/dL (8-24); CO2, Blood 26.0 mmol/L (21-32); Calcium, Blood 8.9 mg/dL (8.5-10.1); Chloride, Blood 117.0 mmol/L (98-108); Creatinine, Blood 2.01 mg/dL (0.40-1.00); Glucose, Blood 139.0 mg/dL (70-99); Potassium, Blood 3.5 mmol/L (3.5-5.5); Sodium, Blood 148.0 mmol/L (136-145)
--- NOTE | 2025-03-27 06:07 | NUR ---
ALERT AND ORIENT TO PERSON AND PLACE ONLY AT THIS TIME. SIGNIFICANTLY RESTLESS WITH MULTIPLE ATTEMPTS TO GET OUT OF BED, PULL OFF HOSPITAL EQUIPMENT INCLUDING EKG LEADS, PULSE OX, AND LONGORIA CATHETER. REDIRECTABLE FOR SHORT PERIODS BUT BEGINS REMOVING EQUIPMENT AGAIN SHORTLY AFTER. FOLLOWS COMMANDS WHEN ASKED. MOVES EXTREMITIES X4 WITHOUT COMPLICATION. WEAKNESS NOTED TO EXTREMITIES X4. PUPILS EQUIL AND REACTIVE AT THIS TIME. NSR/SB MID 50S-70S. ROOM AIR THOUGHOUT NIGHT SATTING 98%. SWALLOWS MEDICATIONS AND SNACK WITHOUT COMPLICATIONS. TOLERATING PUREED DIET AT THIS TIME. CONTINUES ON HEPARIN GTT AT 12 U/KG/HR WITH NEXT ANTI XA 0700. REPORTS NO PAIN THIS SHIFT. LONGORIA CONTINUES TO GRAVITY WITH MINIMAL URINE OUTPUT NOTED. NO S/S OF DISTRESS AT THIS TIME. TURNED FREQUENTY IN BED ON Q2 HOUR TURN SCHEDULE. SAFETY MAINTAINED. PATIENT UPDATED ON CARE CARE WAS PERFORMED THROUGHOUT SHIFT.
--- NOTE | 2025-03-27 08:00 | NUR ---
ASSUMPTION OF CARE ASSUMED CARE OF PATIENT AT APPROX 0700. PATIENT ALERT AND ORIENTED TO SELF AND PLACE. PATIENT HAS SOME CONFUSION AND IS RESTLESS, BUT IS EAILY REDIRECTED. HR NORMAL SINUS IN THE 60S. BP STABLE WITH MAPS >65. PATIENT ON 2LO2 VIA NC WITH SPO2 >94%. LONGORIA PATIENT AND DRAINING BLOOD TINGED URINE TO GRAVITY. PG TO GEORGES PATENT AND INFUSING HEPARIN AT 12 UNITS/KG/HR. CALL LIGHT IN REACH. BED IN LOWEST POSITION. BED ALARM ON.
--- NOTE | 2025-03-27 12:15 | NUR ---
PT UPDATE PT HR DROPPING TO THE 30-40'S, DR. KENNEY CALLED AND INFORMED, ORDERS RECEIVED TO DC THE LABETALOL, INSTRUCTED TO CONTINUE TO MONITOR.
--- NOTE | 2025-03-27 17:08 | NUR ---
SHIFT SUMMARY PATIENT IS NOW ALERT AND ORIENTED TO SELF, FAMILY, EVENT, PLACE, AND DATE, BUT HAS SOME INTERMITTENT CONFUSION. PATIENT HR HAS BEEN SINUS/SINUS CHANCE ANYWHERE FROM THE 40S-70S. PATIENT HAD A FEW EPISODES OF HR AT 39. DR KENNEY IS AWARE. NO NEW ORDERS. BP STABLE WITH MAPS >65. PATIENT ON 2L O2 VIA NC WITH SPO2 >94%. LONGORIA PATENT AND DRAINING YELLOW URINE TO GRAVITY. PATIENT HAD SMEAR BM THIS SHIFT. PG TO GEORGES PATENT AND SALINE LOCKED. IV TO RIGHT AC PATENT AND SALINE LOCKED. PATIENT TOLERATING PO INTAKE AND ABLE TO FEED HERSELF. CALL LIGHT IN REACH. BED ALARM ON. DAUGHTER UPDATED ON PLAN OF CARE TODAY BY DR. KENNEY AND THIS RN.
[2025-03-28] VITALS (8 sets, daily range): BP systolic 101–153; BP diastolic 56–121
--- NOTE | 2025-03-28 06:27 | NUR ---
END OF MEMORIAL COUNSELOR SUMMARY: PATIENT ALERT AND ORIENT THIS AM X3. DIORIENTED TO TIME BUT DOES KNOW THE CURRENT PRESIDENT BUT STATES IT IS 1940. REPORTS ABDOMINAL PAIN X4. TREATED WITH PRN PAIN MEDICATION WITH DESIRED AFFECT. BOWEL SOUNDS ACTIVE X4 QUADRANTS AND PATIENT IS PASSING GAS. NSR/SB WITH HIGH 40S LOWEST HEART RATE. MOVES EXTREMITIES X4 TO COMMAND/SPONTANIOUSLY WITH NOTED WEAKNESS TO ALL EXTREMITIES. NO BM THIS SHIFT. LONGORIA TO GRAVITY WITH MINIMUM UO NOTED; DONNELL IN COLOR. ON Q2 TURN SCHEDULE. PATIENT REFUSING SCDS; TAKING THEM OFF AND KICKING WHEN THEY ARE ON. RESPIRATIONS EVEN AND NON-LABORED. PATIENT CONTINUES ON 2L NC. NO S/S OF DISTRESS OR DISCOMFORT AT THIS TIME.
[2025-03-28 08:15] LABS: BASOPHILS ABSOLUTE AUTO 0.10 K/mm3 (0.00-0.23); BASOPHILS PERCENT AUTO 1 % (0-2); EOSINOPHILS ABSOLUTE AUTO 0.74 K/mm3 (0.00-0.68); EOSINOPHILS PERCENT AUTO 8 % (0-6); Hematocrit 35.6 % (33.0-51.0); Hemoglobin 10.5 g/dL (11.5-16.0); IMMATURE GRAN ABSOLUTE AUTO 0.04 K/mm3 (0.00-0.10); IMMATURE GRAN PERCENT AUTO 0 % (0-1); LYMPHOCYTES ABSOLUTE AUTO 1.82 K/mm3 (0.84-5.20); LYMPHOCYTES PERCENT AUTO 20 % (21-46); MONOCYTES ABSOLUTE AUTO 1.05 K/mm3 (0.16-1.47); MONOCYTES PERCENT AUTO 11 % (4-13); Mean Corpuscular HGB Conc 29.5 g/dL (31.5-36.5); Mean Corpuscular Volume 89 fL (80-100); NEUTROPHILS ABSOLUTE AUTO 5.47 K/mm3 (1.96-9.15); NEUTROPHILS PERCENT AUTO 59 % (41-73); NRBC ABSOLUTE 0.00 K/mm3 (0.00-0.02); NRBC Auto 0.0 /100 WBC (0.0-0.2); Platelet Count 159 K/mm3 (150-400); RDW Coefficient Variation 15.6 % (11.7-14.2); RDW Standard Deviation 51.4 fL (35.1-46.3)
--- NOTE | 2025-03-28 13:00 | NUR ---
JENNIFER HAS BEEN SLEEPING FOR THE MAJORITY OF THE MORNING. HER LONGORIA CATHETER WAS REPLACED AFTER ORDER FROM FOR URINALYSIS. PT EXHIBITED BEING UNCOMFORTABLE WITH THE EXCHANGE. SHE HAS BEEN ABLE TO TAKE IN FLUIDS ORALLY. SHE IS ANSWERING QUESTIONS. HER VITAL SIGNS HAVE BEEN STABLE. HEART RATE FLUCTUATES WITH BREATHING, NOTIFIED DR. KENNEY, HE ORDERED CT SCAN. PT TAKEN TO CT. RETURNS WITHOUT INCIDENT. AT BEDSIDE NOW, ASKING IF HE CAN BE TOLD WHEN SHE WILL BE BETTER AND WHEN SHE WILL LEAVE. TOLD ABOUT PT'S STROKE, STATES YES HE KNOWS THAT. UNSURE WHAT INFORMATION HE IS ASKING FOR.
[2025-03-28 13:04] LABS: Source, Urine Straight Cath
[2025-03-28 13:09] LABS: Bilirubin, Urine Neg (Neg); Color, Urine Amber (P-Yellow); Glucose Qualitative, Urine Neg (Neg); Ketones, Urine Neg (Neg); Leukocyte Esterase, Urine 1+ (Neg); Protein, Urine 3+ (Neg); Specific Gravity, Urine 1.020 (1.003-1.022); Urobilinogen, Urine NORM (Normal)
[2025-03-28 13:28] LABS: Red Blood Cells, Urine 50-100 /hpf (0-2); White Blood Cells, Urine 0-2 /hpf (0-5)
--- NOTE | 2025-03-28 16:36 | NUR ---
MET WITH PT AND AT BEDSIDE. PT REMAINS PLEASANTLY CONFUSED. WAS UNABLE TO MAKE ANY DECISIONS AT THIS TIME, STATES HE HAS HAD "SOME STROKES" IN THE PAST. ETHICS CONSULT PLACED, WILL F/U TOMORROW.
--- NOTE | 2025-03-28 18:19 | NUR ---
SHIFT SUMMARY: A&Ox3, DISORIENTED TO TIME. HR OCCASIONALLY DROPPED FROM 60'S TO 40'S BUT RECOVERED QUICKLY AFTERWARDS DURING FIRST HALF OF SHIFT. HR MAINTAINED IN THE 70-80'S THROUGHOUT REST OF SHIFT. VSS OTHER THAN THAT. NO PAIN REPORTED. PT MAINTAINED ON 2L O2 VIA NC. NSR/SB ASIDE FROM A BRIEF RUN OF AFIB RVR THAT SHE CAME OUT OF WITHOUT INTERVENTION. PT REPORTED NO SX. NEW LONGORIA PLACED, PATENT AND DRAINING WITH MINIMAL URINE OUTPUT. PT HAD CT TODAY. AT BEDSIDE. HE CURRENTLY HAS DECISION MAKING POWER, HOWEVER ETHICS HAS BEEN CONSULTED DUE TO SOME INDECISION REGARDING CODE STATUS.
[2025-03-29] VITALS (12 sets, daily range): BP systolic 97–152; BP diastolic 39–94
--- NOTE | 2025-03-29 06:11 | NUR ---
SHIFT SUMMARY: NO ACUTE CHANGES T/O THE NIGHT. PT ASLEEP MOST OF THE SHIFT. PT REMAINS A&OX3, DISORIENTED TO TIME. PT IS PLEASANTLY CONFUSED AT TIMES. PT AFEBRILE T/O THE NIGHT. DENIED PAIN. PT VSS. HR BETWEEN 70-90S, SINUS. MAPS>65. PT REMAINS ON 2L 02 VIA NC, SATS>90%. PT FREQUENTLY NEEDED NC REPOSITIONED BACK TO HER NOSE SHE CONTINUED TO REMOVE IT. SATS NOTED TO DECREASE INTO HIGH 80S WHEN THIS OCCURRED. NO S/SXS OF DISTRESS NOTED DURING THESE EPISODES. LUNGS CLEAR. ABD SOFT, MILDLY DISTENDED. BT ACTIVE X4. PT HAD BM THIS SHIFT, LOOSE. LONGORIA REMAINS IN PLACE, DRAINING CONCENTRATED URINE TO GRAVITY. PIV IN LFA AND DELL POWERGLIDE REMAIN SALINE LOCKED AT THIS TIME.
--- NOTE | 2025-03-29 08:26 | NUR ---
Ethics consultation support requested. Review of medical history, family constellation, and clinical trajectory facilitated. If the is unable to operate as the principals formal proxy, then by statutory default we would rely on the daughter for substitute medical decision making. I would recommend using the practice of informed non-dissent with the to communicate the change in proxy. In other words, the needs to be gently, respectfully, and clearly informed that we are obliged under these circumstances to shift the burden of decision making to the daughter. If he does not actively dispute or override this recommendation, then we proceed without incident. It he contests or outright refuses this approach, then we may need to consider filing a petition with the court. This should only be legally escelated if we exhaust all other viable and less invasive options. Please reach out if additional support / involvement would be helpful or necessary.
--- NOTE | 2025-03-29 11:15 | NUR ---
ASSUMED CARE AT 0700 PT SLEEPING AT SHIFT CHANGE. CONT TO BE DROUSY DURING ASSESSMENT BUT WAS DIRECTABLE AND AGREEABLE; A/O X3; GENERALIZED WEAKNESS NOTED. SPO2 >98% ON 2L NC. AFEBRILE. VITALS STABLE. LONGORIA IN PLACE AND DRAINING TO GRAVITY. SALINE LOCKED. SEE ASSESSMENT FOR FULL ASSESSMENT. DR KENNEY CALLED PT DAUGHTER AND DISCUSSED PLAN OF CARE. PT IS NOW A DNR, STATUS CHANGED TO MEDICAL, PT/OT ORDERED, AND LNOGORIA REMOVED.
--- NOTE | 2025-03-29 17:58 | NUR ---
END OF SHIFT SUMMARY ON ACUTE EVENTS THIS SHIFT. PT SLEPT ON AND OFF T/O THE SHIFT; AT BEDSIDE FOR SEVERAL HOURS TODAY; SHE CONT TO BE A/O X3. SPO2 >98% ON 2L NC. BP AND HR STABLE. POOR APPITITE FOR ALL THREE MEALS. WILL REPORT TO PM RN WHEN AVAILABLE.
[2025-03-30 03:32] VITALS: BP 157/75
--- NOTE | 2025-03-30 05:42 | NUR ---
SHIFT SUMMARY: PT WAS RESTLESS T/O THE NIGHT. AFEBRILE AND DENIED PAIN OF ANY KIND. AT TIMES PT WOULD CALL OUT AND START PULLING MONITORS, SCD'S AND NASAL CANNULA OFF, APPEARING ANXIOUS. PT REQUIRING REPETITIVE ASSURANCE AND RE-ORIENTATION T/O SHIFT. SHE REMAINED RE-DIRECTABLE AND COOPERATIVE DESPITE INTERMITTENT EPISODES WHERE SHE WOULD BECOME GUARDED. PT WAS ONLY ORIENTED TO SELF AND FAMILIAR FACES FOR MOST OF THIS SHIFT, SHE WOULD ASK ABOUT FAMILY MEMBERS BEING IN THE ROOM AND WOULD STATE THAT SHE WAS IN [facility] [place] AT TIMES. OTHER TIMES SHE WOULD STATE SHE WAS IN THE HOSPITAL, THOUGH SHE APPEARED TO BE REPEATING RNS RATHER THAN KNOWING HERSELF. PT WAS GIVEN ONE DOSE OF ZYPREXA, PER EMAR INTRUCTIONS. PT HR OBSERVED TO OCCASSIONALLY DROP FROM 60S TO HIGH 30S A FEW TIMES BUT RECOVERED QUICKLY. THIS OCCURRED FOR A SHORT AMOUNT OF TIME MID-SHIFT. PT DID NOT HAVE ANY S/SXS OF PAIN OR DISTRESS DURING EPISODES. PT REMAINS ON 2L 02 VIA NC-REQUIRED MULTIPLE REMINDERS TO KEEP O2 ON. LUNGS CLEAR. PT HAD 3 BMS THIS SHIFT, TWO OF WHICH REQUIRED A LINEN CHANGE. PT ABLE TO BEAR WEIGHT AND PIVOT TO BEDSIDE COMMODE W/ MODERATE ASSISTANCE FROM RN. PT DENIED N/V AND CONTINUES TO TOLERATE ORAL LIQUIDS. PT ALSO VOIDED USING BSC. URINE REMAINS CONCENTRATED YELLOW. POWERGLIDE IN [place] REMAINS SALINE LOCKED. THIS RN TO REPORT TO ONCOMING RN. CARE CONTINUES.
--- NOTE | 2025-03-30 07:15 | NUR ---
ASSUMPTION OF CARE: PATIENT RESTING IN BED. PATIENT DENIES PAIN. PATIENT DROWSY AND ORIENTED TO SELF, HOSPITAL AND APRIL THE MONTH. PATIENT >94% ON 2.5L VIA NC. PATIENT DENIES SHORTNESS OF BREATH OR DIFFICULTY BREATHING. PATIENT REQUESTED AND DRANK SOME JUICE WITH RN AT BEDSIDE. NO OVERT SIGNS/SYMPTOMS OF ASPIRATION. PATIENT DENIES NEEDS AT THIS TIME.
[2025-03-30 09:12] VITALS: BP 145/61
[2025-03-30 13:02] VITALS: BP 115/72
--- NOTE | 2025-03-30 14:46 | NUR ---
Spiritual Care Visit Pt. is sitting up in a chair and welcomes my visit. Pt. displays evidence of having to concentrate for her words, but is pleasant and verbalized that she remembered this tool coordinator from previous visits. Spouse is at "chair"-side. Facilitated a short update regarding the Pts. plans. Spouse verbalized displeasure at the Pts. DNR status. Listen with interest and empathy. Considered matters of bharat and belief. Pt. displayed evidence of agreement and understanding. Prayed with the Pt. Pt. and spouse verbalized gratitude for the spiritual care visit.
[2025-03-30 15:52] VITALS: BP 149/101
--- NOTE | 2025-03-30 18:12 | NUR ---
SHIFT SUMMARY: NEURO: PATIENT HAS PERIODS OF BETTER ORIENTATION THAN OTHERS. AT ONE POINT, PATIENT WAS ORIENTED TO SELF, , LOCATION AND THOUGHT THAT TODAY WAS "THE BIG DAY". OTHER TIMES, BUT IS CONFUSED ABOUT WHERE SHE IS AND WHAT IS GOING ON. PATIENT GENERALLY ABLE TO FOLLOW DIRECTIONS WITH MULTIPLE REMINDERS. RESPIRATORY: PATIENT REMAINED STABLE ON 2.5L VIA NC. SPO2 >91%. PATIENT DENIES SHORTNESS OF BREATH OR DIFFICULTY BREATHING. PATIENT DOES SEEM TO HAVE PERIODS OF ELEVATED RESPIRATORY RATE WHEN AWAKE THAT RESOLVES QUICKLY. AT TIMES, PATIENT WILL HAVE A LOW SPO2 (LESS THAN 88%) THAT COINCIDES WITH A CHANCE HEART RATE LOW 38. THIS RESOLVES QUICKLY AND WITHOUT INTERVENTION. CARDIAC: PATIENT'S VITALS STABLE WITH MAPS >65. SEE NOT ABOUT RE: BRADYCARDIA THAT COINCIDES WITH LOW SPO2. GI/: PATIENT CONTINENT AND INCONTINENT OF URINE. PATIENT ABLE TO LET THIS RN KNOW THAT SHE NEEDED TO HAVE A BOWEL MOVEMENT. PATIENT HAS A VERY MINIMAL APPETITE. ENCOURAGED PATIENT TO HAVE ENSURE AT AND INBETWEEN MEALS. PSYCHSOCIAL: PATIENT CALM THROUGHOUT THE SHIFT WITH THE EXCEPTION OF ONE SHORT PERIOD OF RESTLESSNESS AND AGITATION. THIS RESOLVED WITH REPOSITIONING AND RE-ORIENTATION. PATIENT'S AT BEDSIDE DURING THE AFTERNOON.
[2025-03-30 20:06] VITALS: BP 115/89
[2025-03-30 20:18] VITALS: BP 115/89
[2025-03-31 04:54] VITALS: BP 164/80
--- NOTE | 2025-03-31 06:15 | NUR ---
END OF CAKE TESTER SUMMARY: PATIENT ALERT AND ORIENTED X3. DISORIENTED TO YEAR ONLY. MOVES EXTREMITIES X4 AND FOLLOWS ALL COMMANDS. REPORTS NO PAIN OR DISCOMFORT THROUGHOUT SHIFT. INTERMITTENTLY TACHYPNEIC BUT MAINTAINS SATURATION >90 ON 2L NC. FED A VANILLA PUDDING TO PATIENT AND PATIENT EXPRESSES SHE ENJOYS THIS SNACK. ATE 100% OF SNACK THIS SHIFT. CONT WITH INCONT. EPISODES. SAFETY AND COMFORT MAINTAINED. REPORTED TO THIS NURSE THAT PATIENT HAS BEEN UNABLE TO SLEEP POTENTIALLY INCREASING CONFUSION. PRN SLEEP MEDICATION PROVIDED PER PRN ORDER TO PROMOTE A REGULAR SLEEP CYCLE. ALL CARE EXPLAINED IT AROSE TO PATIENT.
[2025-03-31 08:55] VITALS: BP 131/48
[2025-03-31 11:55] VITALS: BP 125/63
--- NOTE | 2025-03-31 18:18 | NUR ---
Summary. Pt sleepy this shift but arousable and oriented to person, place, event. Up to chair all afternoon, at bedside. Pt up with PT and to bedside commode, able to ambulate with walker and standby assist. No acute events this shift, see chart for details.
[2025-03-31 19:32] VITALS: BP 111/97
[2025-04-01 00:57] VITALS: BP 115/93
--- NOTE | 2025-04-01 01:38 | NUR ---
PATIENT TRASFERRED TO ROOM 331 VIA BED. ALERT AND ORIENT X3; DISORIENTED TO TIME. MOVING EXTREMITIES X4. REPORTS NO PAIN. 2L NC WHEN PATIENT WOULD WEAR OXYGEN DEVICE. O2 SAT 92-94%. INCONT. OF BOWEL THIS SHIFT LAST BM 03/31/25. INTERMITTENTLY INCONT. OF URINE. CONTINUES ON PUREED DIET AND TOLERATING AT THIS TIME. CONTINUES WITH SCATTERED BRUISING AND REDNESS IN MERY AREA. SAFETY AND COMFORT MAINTAINED. SALINE LOCKED ON TRANSFER.
[2025-04-01 04:01] VITALS: BP 131/75
--- NOTE | 2025-04-01 04:33 | NUR ---
SHIFT SUMMARY: PT A&OX3, NOT DATE/TIME. PT WAS ANXIOUS AND AGITATED SO SHE RECIEVED HER PRN ZYPREXA. CURRENTLY ON RA, SpO2 90%. PUREWICK IN PLACE FOR INCONTINENCE. CALL LIGHT IS WITHIN REACH. BED ALARM IS ON. BED IS LOW AND LOCKED.
[2025-04-01 07:41] VITALS: BP 137/68
[2025-04-01 15:32] VITALS: BP 129/95
--- NOTE | 2025-04-01 16:07 | NUR ---
SHIFT SUMMARY/DISCHARGE PT AOX2/3, COOPERATIVE, ABLE TO MAKE NEEDS KNOWN. PT IS 1 PERSON ASSSIT TO COMMODE FOR VOIDING. PT ON 2L O2 CURRENTLY. HAD BM THIS SHIFT, TOLERATING MEDICATIONS. [facility] THIS RN CALLED TO GIVE REPORT TO "CHERYL". UNSURE IF CHERYL IS A NURSE OR NOT. CHERYL DID MENTION SHE WILL PASS ON REPORT TO NURSE WHO WAS ON HOLD GETTING REPORT FOR ANOTHER PT. ALL BELONGINGS WENT WITH PT. TRANSFERRED VIA WC.
== END 2025-04-01 16:05 | DRG 64 ==
LOC: ER 19:07 → ICUE 22:06 → MEDS 04-01 01:15 → ENPENDDIS 04-01 13:59 → MEDS 04-01 16:05
PROVIDERS: Emergency Medicine; Internal Medicine; Internal Medicine Critical Care Medicine; Nurse Practitioner Acute Care; ADMIT Internal Medicine
PROC: 5A1935Z Respiratory Ventilation, Less than 24 Consecutive Hours (ICD-10-PCS; principal; 2025-03-22)
PROC: 0BH17EZ Insertion of Endotracheal Airway into Trachea, Via Natural or Artificial Opening (ICD-10-PCS; 2025-03-22)
PROC: 3E033XZ Introduction of Vasopressor into Peripheral Vein, Percutaneous Approach (ICD-10-PCS; 2025-03-22)
DX: I63.49 Cerebral infarction due to embolism of other cerebral artery (principal); G92.8 Other toxic encephalopathy; I21.4 Non-ST elevation (NSTEMI) myocardial infarction; I22.2 Subsequent non-ST elevation (NSTEMI) myocardial infarction; J96.01 Acute respiratory failure with hypoxia; I13.0 Hypertensive heart and chronic kidney disease with heart failure and stage 1 through stage 4 chronic kidney disease, or unspecified chronic kidney disease; I50.22 Chronic systolic (congestive) heart failure; N18.4 Chronic kidney disease, stage 4 (severe); Z66 Do not resuscitate; I70.1 Atherosclerosis of renal artery; I73.9 Peripheral vascular disease, unspecified; R00.1 Bradycardia, unspecified; E87.5 Hyperkalemia; E86.0 Dehydration; Z86.73 Personal history of transient ischemic attack (TIA), and cerebral infarction without residual deficits; Z95.828 Presence of other vascular implants and grafts; Z79.82 Long term (current) use of aspirin; Z87.891 Personal history of nicotine dependence
CPT/HCPCS: 36415; 51702; 70450; 70551; 71045; 80048; 80053; 80202; 80320; 81001; 82140; 82803; 83735; 83880; 84100; 84484; 85025; 85027; 85520; 85610; 85730; 87086; 87637; 93005; 93010; 94640; 94664; 94762; 96365-59; 96375-59; 96376-59; 97110; 97161; 97166; 97530; 97535; 99285-25; A9270; C1751; J0330; J0692; J1200; J1644; J1790; J1938; J2060; J2704; J2760; J3010; J3373; J3470; J7030; J7040; J7050

== ENCOUNTER 2025-04-14 11:29 | Observation (INO) | payer MEDICARE, OTHER ==
[~2025-04-14] VITALS: Ht 160 cm; Wt 59.0 kg
[~2025-04-14 11:29] MED LIST changes: -Ketamine HCl 100 MG / ML 5ML Vial IV ONE; -SuccINYLCHOLINE Chloride 100 MG/5 ML 5MLSYR IV ONE
[2025-04-14] MEDS ORDERED: NS 1,000 ML IV SCH ×2 (11:50→12:55)
[2025-04-14 12:22] LABS: pH Blood Venous 7.44 (7.34-7.37)
[2025-04-14 12:25] LABS: Source, Urine Straight Cath
[2025-04-14 12:34] LABS: BASOPHILS ABSOLUTE AUTO 0.04 K/mm3 (0.00-0.23); BASOPHILS PERCENT AUTO 0 % (0-2); EOSINOPHILS ABSOLUTE AUTO 0.03 K/mm3 (0.00-0.68); EOSINOPHILS PERCENT AUTO 0 % (0-6); Hematocrit 31.3 % (33.0-51.0); Hemoglobin 9.7 g/dL (11.5-16.0); IMMATURE GRAN ABSOLUTE AUTO 0.09 K/mm3 (0.00-0.10); IMMATURE GRAN PERCENT AUTO 1 % (0-1); LYMPHOCYTES ABSOLUTE AUTO 2.29 K/mm3 (0.84-5.20); LYMPHOCYTES PERCENT AUTO 17 % (21-46); MONOCYTES ABSOLUTE AUTO 1.43 K/mm3 (0.16-1.47); MONOCYTES PERCENT AUTO 10 % (4-13); Mean Corpuscular HGB Conc 31.0 g/dL (31.5-36.5); Mean Corpuscular Volume 89 fL (80-100); NEUTROPHILS ABSOLUTE AUTO 10.00 K/mm3 (1.96-9.15); NEUTROPHILS PERCENT AUTO 72 % (41-73); NRBC ABSOLUTE 0.02 K/mm3 (0.00-0.02); NRBC Auto 0.1 /100 WBC (0.0-0.2); Platelet Count 215 K/mm3 (150-400); RDW Coefficient Variation 15.9 % (11.7-14.2); RDW Standard Deviation 51.7 fL (35.1-46.3)
[2025-04-14 12:46] LABS: Magnesium, Blood 2.4 mg/dL (1.6-2.4)
[2025-04-14 12:47] LABS: Alanine Aminotransfer (ALT/SGP 63.0 U/L (12-78); Albumin, Blood 2.7 g/dL (3.4-5.0); Albumin/Globulin Ratio 0.6 (0.8-1.8); Anion Gap 13.0 mmol/L (3-11); Aspartate Aminotrans (AST/SGOT 106.0 U/L (12-37); Bilirubin, Total 1.0 mg/dL (0.1-1.0); Blood Urea Nitrogen 52.0 mg/dL (8-24); CO2, Blood 16.0 mmol/L (21-32); Calcium, Blood 9.4 mg/dL (8.5-10.1); Chloride, Blood 111.0 mmol/L (98-108); Creatinine, Blood 2.46 mg/dL (0.40-1.00); Globulin, Blood 4.6 g/dL (2.2-4.0); Glucose, Blood 160.0 mg/dL (70-99); Potassium, Blood 6.3 mmol/L (3.5-5.5); Sodium, Blood 134.0 mmol/L (136-145); Total Protein, Blood 7.3 g/dL (6.4-8.2)
[2025-04-14 13:04] LABS: Calcium, Ionized (POC) 1.19 mmol/L (1.10-1.46); Chloride (POC) 108 mmol/L (98-108); Creatinine (POC) 3.0 mg/dL (0.6-1.0); Glucose (ISTAT POC) 158 mg/dL (70-99); Hematocrit (POC) 30.0 % (36.0-46.0); Hemoglobin (POC) 10.2 g/dL (12.0-16.0); Potassium (POC) 4.4 mmol/L (3.5-5.5); Sodium (POC) 142 mmol/L (135-148); Total CO2 (POC) 18 mmol/L (21-32)
[2025-04-14 13:16] LABS: Influenza A, PCR NEGATIVE (NEGATIVE); Influenza B, PCR NEGATIVE (NEGATIVE); Resp Syncytial Virus, PCR NEGATIVE (NEGATIVE); SARS-Cov-2 (COVID-19) PCR, MMC NEGATIVE (NEGATIVE)
[2025-04-14 13:17] LABS: Bilirubin, Urine Neg (Neg); Color, Urine Yellow (P-Yellow); Glucose Qualitative, Urine Neg (Neg); Ketones, Urine Neg (Neg); Leukocyte Esterase, Urine 2+ (Neg); Protein, Urine 2+ (Neg); Specific Gravity, Urine 1.025 (1.003-1.022); Urobilinogen, Urine NORM (Normal)
[2025-04-14 13:36] LABS: Yeast/Fungi Urine Many /hpf
[2025-04-14 13:40] LABS: Red Blood Cells, Urine 0-2 /hpf (0-2)
[2025-04-14 13:51] LABS: Alanine Aminotransfer (ALT/SGP 63.0 U/L (12-78); Albumin, Blood 3.0 g/dL (3.4-5.0); Albumin/Globulin Ratio 0.7 (0.8-1.8); Anion Gap 12.0 mmol/L (3-11); Aspartate Aminotrans (AST/SGOT 70.0 U/L (12-37); Bilirubin, Total 0.7 mg/dL (0.1-1.0); Blood Urea Nitrogen 53.0 mg/dL (8-24); CO2, Blood 20.0 mmol/L (21-32); Calcium, Blood 9.7 mg/dL (8.5-10.1); Chloride, Blood 109.0 mmol/L (98-108); Creatinine, Blood 2.61 mg/dL (0.40-1.00); Globulin, Blood 4.3 g/dL (2.2-4.0); Glucose, Blood 162.0 mg/dL (70-99); Potassium, Blood 4.3 mmol/L (3.5-5.5); Sodium, Blood 137.0 mmol/L (136-145); Total Protein, Blood 7.3 g/dL (6.4-8.2)
[2025-04-14] MEDS ORDERED: Magnesium Hydroxide Conc 10 ML UDC PO PRN (16:00)
[2025-04-14] MEDS ORDERED: Ondansetron HCl 2 MG / ML 2ML Vial IV PRN (16:00)
[2025-04-14] MEDS ORDERED: Morphine Sulfate 4 MG/1 ML Injection IV PRN (16:00)
[2025-04-14] MEDS ORDERED: FLU VACC TS2025(65UP)/MF59C/PF 45 MCG/0.5 ML SYRINGE IM SCH (16:00)
[2025-04-14 16:15] VITALS: BP 118/71
[2025-04-14] MEDS ORDERED: LORazepam 2 MG/ML 1ML Injection IV PRN ×2 (16:50→19:15)
[2025-04-14] MEDS ORDERED: Morphine Sulfate 20 MG/1ML 1 ML Oral Syringe PO PRN (16:55)
[2025-04-14] MEDS ORDERED: Atropine Sulfate 1% Opth Soln 2ML BTL SL PRN (16:55)
--- NOTE | 2025-04-14 17:26 | NUR ---
PALLIATIVE CARE CONSULT RECEIVED FOR MEDICALLY FRAGILE, AD/POLST, END OF LIFE/COMFORT CARE, READMISSION. REVIEWED MEDICAL RECORD, NO POLST ON FILE OR WITH [facility]. PT HAD RECENT HOSPITALIZATION. SHE WAS SENT OVER FROM [facility] DUE TO AMS. SPOKE TO DR. FELIX ABOUT CONCERNS. CALLED SPOUSE LUIS AT NUMBER IN CHART AND MD NOTE WITH NO ANSWER. CALLED DAUGHTER NELIDA AND SHE ANSWERED. DISCUSSED PLAN TO ADMIT PT AND CODE STATUS. NELIDA STATED PT IS DNR AND HAS "DIRECTIVE" ON FILE WITH [facility]. CALLED [facility] AND THEY WERE ABLE TO CONFIRM PT HAS POLST ON FILE. THERE IS NO ADVANCE DIRECTIVE. POLST RECEIVED VIA FAX FROM [facility]. IT STATES DNR, SELECTIVE TREATMENT. IT IS NOT DATED AND THE PRINTED SIGNATURE OF MD IS NOT PRESENT. CALLED SPOUSE LUIS AGAIN AND HE IS IN PT ROOM AT THIS TIME. CALLED DR. FELIX TO LET HER KNOW SPOUSE IS PRESENT AND CONCERNS WITH POLST.
--- NOTE | 2025-04-14 18:09 | NUR ---
PALLIATIVE CARE VISIT: MET WITH SPOUSE IN PT ROOM. PT IS NON RESPONSIVE IN BED. PAINAD IS 2/10. SLIGHTLY RESTLESS. DR. FELIX PRESENT AND EDUCATED SPOUSE ON PT DIAGNOSIS AND PROGNOSIS. DISCUSSED COMFORT CARE VS SUPPORTIVE TREATMENT. MULTIPLE TIMES SPOUSE LUIS STATED HE WANTED PT PAIN FREE. SPOUSE DID AGREE TO COMFORT CARE.
--- NOTE | 2025-04-14 22:41 | NUR ---
ADMIT NOTE ER CALLED FOR HANDOFF BY MARY GARCIA. HANDOFF GIVEN TO ORIENTEE BY CHRONIC DISEASE EPIDEMIOLOGIST MAGALY. PT TRANSFERED TO FLOOR VIA GURNEY. PERSONAL POSSESSIONS WITH PATIENT. FAMILY AT BEDSIDE. I HAD A DISCUSSION WITH FAMILY ABOUT THE PLAN OF CARE. FAMILY IN AGREEMENT WITH THE PLAN OF COMFORT CARE. PATIENT IS ON 4 1/2 LPM O2 AT THIS TIME, RA IS HER BASELINE. PUREWICK IN PLACE. I DID MEDICATE THIS PATIENT WITH ANXIETY MEDICATION, THIS WAS EFFECTIVE.
--- NOTE | 2025-04-15 00:10 | NUR ---
PT STATUS PT APPEARS TO BE IN PAIN. I DID GIVE 10 MG OF ROXANOL. SHE STILL APPEARED RESTLESS AND UNCOMFORTABLE TO ME. SO I DID PULL 10 MORE MG OF ROXANOL AND GAVE THAT (ACHEIVING THE FULL DOSE OF 20 MG). I AM CURRENTLY IN THE ROOM MONITORING THE PATIENT FOR RESULTS.
--- NOTE | 2025-04-15 04:15 | NUR ---
SHIFT SUMMARY ADMITTED THIS SHIFT FOR AMS/SOB. COMFORT CARE. SHE WILL BE REFERRED TO HOSPICE. I HAVE MEDICATED HER FOR PAIN AND ANXIETY THIS SHIFT. PUREWICK IN PLACE. SHE IS A&O TO SELF ONLY. PALLIATIVE CARE IS CONSULTED. SHE IS ON 4 1/2 LPM O2. SHE IS ON BEDREST. SHE IS UNRESPONSIVE EXCEPT TO PAIN. SHE WAS TACHYPNEIC AT ADMIT, RESTLESS AND PULLING AT LINES/TUBES. TOWARDS END OF SHIFT HER BREATHING HAS SLOWED DOWN, BUT HAS PERIODS OF APNEA. SHE NO LONGER APPEARS RESTLESS OR UNCOMFORTABLE TO ME.
--- NOTE | 2025-04-15 11:52 | NUR ---
"Spiritual Care | COmfort Care Visit Pt. is on comfort care and is mostly non-responsive. No family or visitors are present. Based upon the Pts. proclamation of bharat as well as previous hospital visitations, this helicopter technician prayed over the Pt. prayers of comfort and anticipated transition. Pt. seemed mildly agitated at one point but did not verbalize any words. Will remain available to the Pt., family, and staff."
--- NOTE | 2025-04-15 15:05 | NUR ---
TIME OF WAS 1543. DR. ORO MADE AWARE. IS CURRENTLY AT BEDSIDE WITH SPIRITUAL CARE AND PALLIATIVE RN.
--- NOTE | 2025-04-15 16:02 | NUR ---
"Spiritual Care | EOL Pt. had passed when a palliative care nurse called this ict quality assurance engineer to bedside. Spouse is present as dislpays evidence of both shock and grief. Facilitated an update and prayed with the spouse and nurse. Contacted the channing ripening room attendant who was en route. Pts. daughter arrived to bedside, and soon afterward the Pts. ripening room attendant arrived. More familial prayer is offer by the Hairspring Setter. Family has chosen [facility] is chosen for the home."
--- NOTE | 2025-04-15 16:08 | NUR ---
PALLIATIVE CARE VISIT: LATE ENTRY 929: ROUNDED ON PATIENT THIS MORNING. PT HAVING PERIODS OF 5 SECOND APNEIC EPISODES. FAMILY IS NOT PRESENT. DID ORAL CARE AND REPOSITIONED PT FOR COMFORT. DISCUSSED SYMPTOM MANAGEMENT WITH PRIMARY RN. 1145: CALL FROM PRIMARY RN REQUESTING ATIVAN BE CHANGED TO ORAL DOSE SO SHE CAN CRUSH AND GIVE WITH ROXANOL. ALSO CHANGE TYLENOL TO RECTAL FORM SINCE PT UNABLE TO SWALLOW PILLS. DR. HILLMAN IN OFFICE AND SHE AGREED TO CHANGE ORDERS TO ORAL/SD FORM. ORDERS PLACED.
--- NOTE | 2025-04-15 21:52 | NUR ---
[facility] C[facility] CONTACT NELIDA FROM [facility] CALLED AT 2004 TO ADVISE PT IS APPROVED FOR EYE DONATION ONLY AND FAMILY HAS AGREED TO ALLOW HARVEST OF EYES. TECH IN ROUTE TO HOSPITAL WITH EXPECTED ARRIVAL TIME IN 2-2.5 HOURS. PT'S EYES ARE COVERED WITH ICE PENDING ARRIVAL OF DONOR TECH.
== END 2025-04-15 14:53 ==
LOC: ER 11:29 → MEDS 11:30 → ENPENDDIS 04-15 14:53
PROVIDERS: Emergency Medicine; ADMIT Internal Medicine
DX: I21.4 Non-ST elevation (NSTEMI) myocardial infarction (principal); N17.9 Acute kidney failure, unspecified; N18.4 Chronic kidney disease, stage 4 (severe); A41.9 Sepsis, unspecified organism; J18.9 Pneumonia, unspecified organism; E87.21 Acute metabolic acidosis; G92.8 Other toxic encephalopathy; I50.20 Unspecified systolic (congestive) heart failure; I70.1 Atherosclerosis of renal artery; Z66 Do not resuscitate; Z79.82 Long term (current) use of aspirin; Z79.02 Long term (current) use of antithrombotics/antiplatelets; Z79.899 Other long term (current) drug therapy; Z86.73 Personal history of transient ischemic attack (TIA), and cerebral infarction without residual deficits
CPT/HCPCS: 36415; 70450; 71045; 80047; 80053; 81001; 82140; 82803; 83605; 83735; 83880; 84484; 85014; 85025; 87040; 87086; 87106; 87637; 93005; 93010; 96361; 96374; 96375; 96376; 99285-25; A6590; A9270; G0378; J1938; J2060; J2270; J7030; P9612